=== PATIENT | male | born 1970 | race African-American/Black ===

== ENCOUNTER 2016-11-08 14:46 | Inpatient (IN) | payer MEDICARE, MEDICAID ==
[~2016-11-08] VITALS: Ht 167.6 cm; Wt 76.4 kg
[2016-11-08] MEDS ORDERED: ZOLPIDEM TARTRATE 10 MG TABLET PO PRN (18:00)
[2016-11-08] MEDS ORDERED: HALOPERIDOL 5 MG TABLET PO PRN (18:00)
[2016-11-08] MEDS ORDERED: LORazepam 2 MG TABLET PO PRN (18:00)
[2016-11-08 18:21] VITALS: BP 105/71
[2016-11-09 06:28] VITALS: BP 120/73
[2016-11-09 08:39] LABS: HEMOGLOBIN A1C 5.1 % (4.5-6.2)
[2016-11-09 08:41] LABS: BASOPHILS # (AUTO) 0.03 K/uL (0.00-0.20); BASOPHILS % (AUTO) 0.6 % (0.0-2.0); EOSINOPHILS # (AUTO) 0.29 K/uL (0.00-0.70); HEMOGLOBIN 14.9 g/dL (13.5-17.5); LYMPHOCYTES # (AUTO) 1.9 K/uL (1.0-4.8); LYMPHOCYTES % (AUTO) 31.6 % (22.0-44.0); MEAN CORPUSCULAR HEMOGLOBIN 31.6 pg (26.0-34.0); MEAN CORPUSCULAR VOLUME 96 fL (80-100); MONOCYTES # (AUTO) 0.5 K/uL (0.1-1.0); MONOCYTES % (AUTO) 8.2 % (2.0-9.0); NEUTROPHILS # (AUTO) 3.2 K/uL (1.8-7.7); NEUTROPHILS % (AUTO) 54.7 % (40.0-70.0); PLATELET COUNT (AUTO) 248 K/uL (150-450); RED BLOOD CELL COUNT(AUTO) 4.71 MIL/uL (4.50-5.90); RED CELL DISTRIBUTION WIDTH 13.7 % (11.5-14.5); WHITE BLOOD COUNT (AUTO) 5.9 K/uL (4.5-11.0)
[2016-11-09 08:53] LABS: ALANINE AMINOTRANSFERASE 33 U/L (12-78); ALBUMIN 3.4 g/dL (3.4-5.0); ANION GAP 5 mmol/L (8-16); ASPARTATE AMINOTRANSFERASE 14 U/L (15-37); BILIRUBIN,TOTAL 0.4 mg/dL (0.1-1.0); CALCIUM, TOTAL 9.2 mg/dL (8.8-10.5); CARBON DIOXIDE 29 mmol/L (22-29); CHLORIDE 107 mmol/L (98-107); CHOL/HDL RATIO 4.2 (4.2-7.3); CREATININE 0.95 mg/dL (0.60-1.30); GLOMERULAR FILTR. RATE CALC > 60 mL/min (>60); POTASSIUM 5.2 mmol/L (3.5-5.1); SODIUM SERUM 141 mmol/L (136-145); THYROID STIMULATING HORMONE 0.48 uIU/mL (0.36-3.74); TOTAL PROTEIN, SERUM 6.6 g/dL (6.4-8.2); UREA NITROGEN, BLOOD 16 mg/dL (7-18)
[2016-11-09 08:55] VITALS: BP 114/68
[2016-11-09 16:10] VITALS: BP 112/70
[2016-11-09] MEDS: TRIAMCINOLONE 0.1% 15 GM OINTMENT TP SCH (16:17)
[2016-11-10 00:03] VITALS: BP 110/70
[2016-11-10] MEDS: TRIAMCINOLONE 0.1% 15 GM OINTMENT TP SCH ×2 (08:29→16:47)
[2016-11-10] MEDS: ARIPiprazole 5 MG TABLET PO SCH (08:30)
[2016-11-10] MEDS ORDERED: SERTRALINE HCL 50 MG TABLET PO SCH (09:00)
[2016-11-10 09:05] VITALS: BP 111/66
[2016-11-10] MEDS ORDERED: LOPERAMIDE HCL 2 MG CAPSULE PO PRN (14:15)
[2016-11-10] MEDS: MAG HYDROX/AL HYDROX/SIMETH ES 30 ML SUSPENSION UDCUP PO PRN (14:30)
[2016-11-10 16:30] VITALS: BP 135/83
[2016-11-10 16:35] VITALS: BP 130/80
[2016-11-11 01:03] VITALS: BP 102/67
[2016-11-11] MEDS ORDERED: SODIUM POLYSTYRENE SULFONATE 15 GM/60 ML SUSPENSION BOTTLE PO ONE (07:45)
[2016-11-11] MEDS: TRIAMCINOLONE 0.1% 15 GM OINTMENT TP SCH ×2 (08:14→16:31)
[2016-11-11] MEDS: SERTRALINE HCL 100 MG TABLET PO SCH (08:14)
[2016-11-11] MEDS: ARIPiprazole 5 MG TABLET PO SCH (08:28)
[2016-11-11 09:30] VITALS: BP 126/82
[2016-11-11 16:32] VITALS: BP 124/71
[2016-11-11] MEDS: MAG HYDROX/AL HYDROX/SIMETH ES 30 ML SUSPENSION UDCUP PO PRN (16:32)
[2016-11-12 01:15] VITALS: BP 122/75
[2016-11-12 08:03] VITALS: BP 127/74
[2016-11-12] MEDS: SERTRALINE HCL 100 MG TABLET PO SCH (08:42)
[2016-11-12] MEDS: ARIPiprazole 5 MG TABLET PO SCH (08:42)
[2016-11-12] MEDS: TRIAMCINOLONE 0.1% 15 GM OINTMENT TP SCH ×2 (08:42→16:19)
[2016-11-12] MEDS: MAG HYDROX/AL HYDROX/SIMETH ES 30 ML SUSPENSION UDCUP PO PRN (10:07)
[2016-11-12] MEDS ORDERED: SERT100T12 PO ×2 (15:01→15:14)
[2016-11-12] MEDS ORDERED: ARIP5TAB9 PO ×2 (15:01→15:14)
== END 2016-11-12 16:30 | disposition home or self-care (01) | DRG 885 ==
LOC: B2S 17:57
PROVIDERS: ADMIT Psychiatry & Neurology Psychiatry; ATTEND Psychiatry & Neurology Psychiatry
DX: F33.3 Major depressive disorder, recurrent, severe with psychotic symptoms (principal); R45.851 Suicidal ideations; R45.850 Homicidal ideations; M25.512 Pain in left shoulder; G89.29 Other chronic pain; M25.562 Pain in left knee; K59.00 Constipation, unspecified; F12.90 Cannabis use, unspecified, uncomplicated; G47.00 Insomnia, unspecified; L20.9 Atopic dermatitis, unspecified; E87.5 Hyperkalemia; Z59.0 Homelessness; Z72.89 Other problems related to lifestyle; Z79.899 Other long term (current) drug therapy
CPT/HCPCS: 83036; 84132; 84439; 84443